=== PATIENT | male | born 1975 | race Caucasian/White ===

== ENCOUNTER → 2016-11-03 | Outpatient (REF) ==
[~2016-11-03] MED LIST: AMOXICILLIN875 MG PO; BACTRIM DS 8001 TAB PO; CLEOCIN HC150 MG/CAP PO; CLEOCIN HCL300 MG PO; CLINDAMYCIN150 MG PO; DOXYCYCLINE 10100 MG PO; NORCO 325 MG-7.1 TAB PO; PERIDEX (CHLOR480 ML MM; PREDNISONE20 MG PO; PROAIR HFA0.09 MG/AC IH; PROVENTIL0.09 MG/A1 IH; ROCEPHIN 2GM VIAL21 IJ; ROXICODONE 55 MG/TAB PO; ULTRAM 50MG TAB50 MG PO; ZITHROMAX Z PA250 MG PO
== END ==
LOC: ZLAB.WCH 15:43
DX: Z01.89 Encounter for other specified special examinations (principal)

== ENCOUNTER → 2016-11-05 | Outpatient (REF) | LOC: ZLAB.WCH 11:27 | DX: Z01.89 Encounter for other specified special examinations (principal) ==

== ENCOUNTER 2016-11-08 10:25 | Day surgery (SDC) | payer MEDICAID ==
[~2016-11-08] VITALS: Ht 177.8 cm; Wt 73.1 kg
[~2016-11-08 10:25] MED LIST changes: -AMOXICILLIN875 MG PO; -CLEOCIN HC150 MG/CAP PO; -CLINDAMYCIN150 MG PO; -DOXYCYCLINE 10100 MG PO; -PERIDEX (CHLOR480 ML MM; -ROCEPHIN 2GM VIAL21 IJ
[2016-11-08 10:56] VITALS: BP 136/87; PULSE 98; TEMP 98.5
[2016-11-08] MEDS ORDERED: ROCEPHIN 2GM VIAL21 IJ (11:12)
[2016-11-08 15:00] VITALS: BP 130/76; PULSE 88; TEMP 97.9
[2016-11-08 15:10] VITALS: TEMP 98.1
[2016-11-08 15:15] VITALS: BP 150/85; PULSE 85
[2016-11-08] MEDS ORDERED: AMOXICILLIN875 MG PO (15:23)
[2016-11-08 15:30] VITALS: BP 124/74; PULSE 94
== END 2016-11-08 16:04 | disposition home or self-care (01) ==
LOC: SDCO 10:25
DX: L03.116 Cellulitis of left lower limb (principal); S81.032A Puncture wound without foreign body, left knee, initial encounter
CPT/HCPCS: J0690; J2270; J2405; J2704; J2765; J3010; J7120

== ENCOUNTER 2016-11-11 13:00 | Outpatient (RCR) | payer MEDICAID ==
[2016-11-06 09:18] VITALS: BP 116/72; PULSE 95; TEMP 98.4
[2016-11-07 08:48] VITALS: BP 140/84; PULSE 100; TEMP 97.7
[2016-11-08 08:54] VITALS: BP 154/74; PULSE 107; TEMP 98.4
[2016-11-09 13:00] VITALS: BP 137/84; PULSE 93; TEMP 98.1
[2016-11-10 12:58] VITALS: BP 152/92; PULSE 104; TEMP 98.1
[~2016-11-11] VITALS: Ht 177.8 cm; Wt 75.0 kg
[~2016-11-11 13:00] MED LIST changes: +AMOXICILLIN875 MG PO; +ROCEPHIN 2GM VIAL21 IJ
[2016-11-11 13:25] VITALS: BP 132/76; PULSE 56; TEMP 98.1
== END 2016-11-11 14:23 | disposition home or self-care (01) ==
LOC: EUO 13:00
DX: Z79.2 Long term (current) use of antibiotics (principal)
CPT/HCPCS: J0696

== ENCOUNTER 2017-01-08 00:16 | Emergency (ER) | payer MEDICAID ==
[~2017-01-08] VITALS: Ht 180.3 cm; Wt 77.3 kg
[2017-01-08 00:23] VITALS: BP 157/93; PULSE 99; TEMP 98.3
[2017-01-08] MEDS ORDERED: DOXYCYCLINE 10100 MG PO (01:14)
== END 2017-01-08 01:15 | disposition home or self-care (01) ==
LOC: COL.ER 00:16
DX: L03.111 Cellulitis of right axilla (principal); L98.9 Disorder of the skin and subcutaneous tissue, unspecified; J45.909 Unspecified asthma, uncomplicated; F17.210 Nicotine dependence, cigarettes, uncomplicated

== ENCOUNTER 2017-03-14 11:17 | Emergency (ER) | payer MEDICAID ==
[~2017-03-14] VITALS: Ht 177.8 cm; Wt 78.6 kg
[~2017-03-14 11:17] MED LIST changes: +DOXYCYCLINE 10100 MG PO
[2017-03-14 11:24] VITALS: BP 123/94; TEMP 98.3
[2017-03-14] MEDS ORDERED: CLINDAMYCIN150 MG PO (12:13)
[2017-03-14 12:18] VITALS: PULSE 95
== END 2017-03-14 12:19 | disposition home or self-care (01) ==
LOC: COL.ER 11:17
DX: K08.89 Other specified disorders of teeth and supporting structures (principal); H00.012 Hordeolum externum right lower eyelid; F17.210 Nicotine dependence, cigarettes, uncomplicated

== ENCOUNTER 2017-05-12 18:39 | Emergency (ER) | payer MEDICAID ==
[~2017-05-12] VITALS: Ht 177.8 cm; Wt 77.3 kg
[~2017-05-12 18:39] MED LIST changes: +CLINDAMYCIN150 MG PO
[2017-05-12 18:43] VITALS: BP 124/69; PULSE 101; TEMP 98.2
[2017-05-12] MEDS ORDERED: CLEOCIN HC150 MG/CAP PO (19:15)
[2017-05-12] MEDS ORDERED: PERIDEX (CHLOR480 ML MM (19:16)
== END 2017-05-12 19:31 | disposition home or self-care (01) ==
LOC: COL.ER 18:39
DX: K04.7 Periapical abscess without sinus (principal); K03.81 Cracked tooth; K08.89 Other specified disorders of teeth and supporting structures; F17.210 Nicotine dependence, cigarettes, uncomplicated

== ENCOUNTER 2017-09-16 19:50 | Emergency (ER) | payer MEDICAID ==
[~2017-09-16] VITALS: Ht 157.5 cm; Wt 79.5 kg
[~2017-09-16 19:50] MED LIST changes: +CLEOCIN HC150 MG/CAP PO; +PERIDEX (CHLOR480 ML MM
[2017-09-16 19:54] VITALS: TEMP 96.9
[2017-09-16 21:12] VITALS: BP 153/98; PULSE 109
[2017-09-16] MEDS ORDERED: NORCO 325 MG-51 TAB PO (22:36)
== END 2017-09-16 22:54 | disposition home or self-care (01) ==
LOC: COL.ER 19:50
DX: S43.102A Unspecified dislocation of left acromioclavicular joint, initial encounter (principal); S40.012A Contusion of left shoulder, initial encounter; W18.39XA Other fall on same level, initial encounter; Y93.01 Activity, walking, marching and hiking; Y92.89 Other specified places as the place of occurrence of the external cause
CPT/HCPCS: J1170; J1885

== ENCOUNTER 2017-11-30 18:55 | Emergency (ER) | payer MEDICAID ==
[~2017-11-30] VITALS: Ht 177.8 cm; Wt 77.3 kg
[~2017-11-30 18:55] MED LIST changes: +NORCO 325 MG-51 TAB PO
[2017-11-30 19:10] VITALS: BP 123/73; TEMP 98
[2017-11-30] MEDS ORDERED: PREDNISONE20 MG PO (21:31)
[2017-11-30] MEDS ORDERED: DOXYCYCLINE 10100 MG PO (21:31)
[2017-11-30 21:39] VITALS: PULSE 102
== END 2017-11-30 21:39 | disposition home or self-care (01) ==
LOC: COL.ER 18:55
DX: S80.01XA Contusion of right knee, initial encounter (principal); J44.9 Chronic obstructive pulmonary disease, unspecified; J20.9 Acute bronchitis, unspecified; F17.210 Nicotine dependence, cigarettes, uncomplicated; V87.8XXA Person injured in other specified noncollision transport accidents involving motor vehicle (traffic), initial encounter
CPT/HCPCS: J7512